=== PATIENT | male | born 1960 | race Caucasian/White ===

== ENCOUNTER 2022-05-10 11:25 | Day surgery (SDC) | payer BC ==
[2022-05-08 13:56] VITALS: BMI 26.6
[2022-05-10] MEDS ORDERED: EPINEPHrine 1 MG/ML AMP ONE (13:30)
[2022-05-10] MEDS ORDERED: Bupivacaine PF 0.5% 30 ML VIAL ONE (13:30)
[2022-05-10] MEDS ORDERED: SUGAMMADEX SODIUM 200 MG/2 ML VIAL ONE (13:50)
[2022-05-10] MEDS ORDERED: Fentanyl 100 MCG/2 ML VIAL ONE (13:52)
[2022-05-10] MEDS ORDERED: CEFAZOLIN 2 GM VIAL ONE (13:52)
[2022-05-10] MEDS ORDERED: PROPOFOL 20 ML ONE (13:52)
[2022-05-10] MEDS ORDERED: Acetaminophen 325 MG TAB PO PRN (13:55)
[2022-05-10] MEDS ORDERED: HYDROcodone/Acetaminophen 5/325 mg Tablet PO PRN (13:55)
[2022-05-10] MEDS ORDERED: Rocuronium Bromide 10 MG/ML (10ML VIAL) ONE (13:56)
[2022-05-10] MEDS ORDERED: Ondansetron PF 4 MG/2 ML Vial ONE (13:56)
[2022-05-10] MEDS ORDERED: Lidocaine 1% PF 5 ML VIAL ONE (13:56)
[2022-05-10] MEDS ORDERED: Dexamethasone 4 mg/ml Vial ONE (13:56)
[2022-05-10] MEDS ORDERED: HYDROcodone/Acetaminophen 5/325 mg Tablet ONE (15:55)
== END 2022-05-10 16:40 | disposition home or self-care (01) ==
LOC: CSHSDC 11:25
PROVIDERS: ATTEND Surgery
PROC: 8E0W4CZ Robotic Assisted Procedure of Trunk Region, Percutaneous Endoscopic Approach (ICD-10-PCS; principal; 2022-05-10)
PROC: 0YQ54ZZ Repair Right Inguinal Region, Percutaneous Endoscopic Approach (ICD-10-PCS; principal; 2022-05-10)
DX: K40.90 Unilateral inguinal hernia, without obstruction or gangrene, not specified as recurrent (principal); I10 Essential (primary) hypertension; E66.9 Obesity, unspecified; E78.00 Pure hypercholesterolemia, unspecified; Z87.891 Personal history of nicotine dependence; Z68.26 Body mass index [BMI] 26.0-26.9, adult; Z98.890 Other specified postprocedural states
CPT/HCPCS: C1713; J0171; J1100; J2405; J2704; J3010; S0020